=== PATIENT | female | born 1980 | race Caucasian/White ===

== ENCOUNTER 2024-01-22 07:14 | Emergency (ER) | payer BC ==
[~2024-01-22] VITALS: Ht 157.5 cm; Wt 61.2 kg
[2024-01-22 07:22] VITALS: BP_SYST 123; PULSE 82; RESP 18; TEMP 96.7; O2SAT 98
[2024-01-22 07:58] LABS: BASOPHILS # (AUTO) 0.1 K/uL (0.0-0.2); BASOPHILS % (AUTO) 0.7 % (0.0-2.0); EOSINOPHILS % (AUTO) 0.6 % (0.0-4.0); HEMATOCRIT 40.7 % (36-48); HEMOGLOBIN 14.2 g/dL (12.0-16.0); LYMPHOCYTES # (AUTO) 2.5 K/uL (1.0-5.5); LYMPHOCYTES % (AUTO) 31.6 % (20.5-51.5); MEAN CORPUSCULAR HEMOGLOBIN 31 pg (27-31); MEAN CORPUSCULAR HGB CONC 35 % (32-36); MEAN CORPUSCULAR VOLUME 89 fL (79.0-98.0); MONOCYTES # (AUTO) 0.6 K/uL (0.0-1.0); MONOCYTES % (AUTO) 7.4 % (1.7-9.3); NEUTROPHILS # (AUTO) 4.7 K/uL (1.8-7.7); NEUTROPHILS % (AUTO) 59.7 % (40.0-70.0); PLATELET COUNT (AUTO) 317 K/uL (130-430); RED CELL DISTRIBUTION WIDTH 13.4 % (9.0-15.0); WHITE BLOOD COUNT (AUTO) 7.9 K/uL (4.8-10.8)
[2024-01-22] MEDS: MECLIZINE HCL 25 MG TABLET (ANITVERT) PO ONE (08:06)
[2024-01-22] MEDS: METOCLOPRAMIDE HCL 10 MG/2 ML VIAL IVP ONE (08:06)
[2024-01-22 08:09] LABS: ANION GAP 7 (5-15); CALCIUM 8.3 mg/dL (8.4-11.0); CARBON DIOXIDE 25 mmol/L (23-29); CHLORIDE 104 mmol/L (98-107); CREATININE 0.68 mg/dL (0.55-1.30); GFR AFRICAN AMERICAN 120 mL/min (>90); GLUCOSE 111 mg/dL (74-106); POTASSIUM 3.8 mmol/L (3.5-5.1); SODIUM SERUM 136 mmol/L (136-145); UREA NITROGEN, BLOOD 14 mg/dL (8-21)
[2024-01-22 08:12] LABS: GFR NON AFRICAN-AMERICAN 99 mL/min (>90)
[2024-01-22 08:17] LABS: CREATINE KINASE, TOTAL 38 U/L (26-192)
[2024-01-22] MEDS ORDERED: MECL-261 PO (09:11)
[2024-01-22 09:35] VITALS: BP_SYST 123; PULSE 82; RESP 18; TEMP 96.7; O2SAT 98
== END 2024-01-22 09:35 | disposition home or self-care (01) ==
LOC: SED 07:14
DX: H81.10 Benign paroxysmal vertigo, unspecified ear (principal); R11.2 Nausea with vomiting, unspecified; Z79.899 Other long term (current) drug therapy
CPT/HCPCS: 99285; 96374; 70450; 71045; 80048; 82550; 85025; 84484; 36415; 93005; 81025; J2765; J8597